=== PATIENT | male | born 1950 | race Caucasian/White ===

== ENCOUNTER 2021-04-26 19:59 | Emergency (ER) | payer OTHER, SELFPAY ==
[2021-04-26] VITALS (14 sets, daily range): BP systolic 160–184; BP diastolic 74–96; PULSE 80–88; RESP 20–36; TEMP 36.3; O2SAT 92–96; BMI 36.6
[2021-04-26 20:22] LABS: Add Manual Diff / Slide Review NO; Basophils Absolute Auto 100 /uL (0-100); Basophils Percent Auto 0.5 % (0-2); Eosinophils Absolute Auto 0 /uL (0-450); Eosinophils Percent Auto 0.2 % (2-4); Hematocrit 49.4 % (41-53); Hemoglobin 16.5 g/dL (13.5-17.5); Lymphocytes Absolute Auto 1100 /uL (1100-4500); Lymphocytes Percent Auto 7.4 % (25-40); Mean Corpuscular HGB Conc 33.3 % (30-36); Mean Corpuscular Hemoglobin 31.1 PG (26-34); Mean Corpuscular Volume 93.5 fL (80-100); Monocytes Absolute Auto 800 /uL (0-900); Monocytes Percent Auto 5.8 % (3-14); Neutrophils Absolute Auto 12400 /uL (1500-7000); Neutrophils Percent Auto 86.1 % (50-75); Platelet Count 203 X10^3/uL (150-400); Red Blood Cell Count 5.29 X10^6/uL (4.5-5.9); Red Cell Distribution Width 13.1 % (11.6-14.8); White Blood Cell Count 14.4 X10^3/uL (4.5-11.0)
[2021-04-26 20:37] LABS: Alanine Aminotransferase 23 IU/L (<50); Albumin 4.7 g/dL (3.5-5.0); Albumin Globulin Ratio 1.3 (1.0-2.8); Alkaline Phosphatase 81 U/L (38-126); Aspartate Aminotransferase 42 IU/L (17-59); BUN Creatinine Ratio 13.2 (6-22); Bilirubin Total 0.8 mg/dL (0.2-1.3); Blood Urea Nitrogen 15 mg/dL (9-20); Calcium 9.4 mg/dL (8.4-10.2); Carbon Dioxide 29 mmol/L (22-32); Chloride 101 mmol/L (98-107); Estimated Glomerular Filt Rate > 60.0 mL/min (>60); Globulin 3.7 g/dL (1.7-4.1); Glucose 139 mg/dL (80-110); HEMOLYSIS 45 (0-50); Lipase 83 U/L (23-300); Potassium 4.1 mmol/L (3.4-5.1); Sodium 139 mmol/L (137-145); Total Protein 8.4 g/dL (6.3-8.2)
--- NOTE | 2021-04-26 21:09 | PC.NURSE ---
Went to check on pt per primary RNs request. Pt states he is having 6/10 sharp LL abd pain, requesting pain medication. Relayed that information to Dr. [place] and she gave a verbal order for 0.5mg IV dilaudid. Repeated and verified
[2021-04-26] MEDS: HYDROMORPHONE 0.5 MG INJ IV (21:15)
[2021-04-26 21:46] LABS: Bacteria Urine None Seen; WBC Urine None Seen (0-5/HPF)
[2021-04-26 22:12] LABS: Amorphous Sediment Urine 1+; RBC Urine 10-30/HPF (0-5/HPF)
[2021-04-27] VITALS (14 sets, daily range): BP systolic 107–177; BP diastolic 58–88; PULSE 79–87; RESP 13–22; TEMP 37.1; O2SAT 93–96
--- NOTE | 2021-04-27 00:45 | ED.GENADULT ---
HPI - General Adult General Chief complaint: Abdominal Pain Stated complaint: ABD Pain L Time Seen by Provider: 04/27/21 00:44 Source: patient Mode of arrival: EMS Limitations: no limitations and language barrier History of Present Illness HPI narrative: 71-year-old gentleman presents with left lower quadrant abdominal pain, nausea and vomiting with increasing pain intermittently all afternoon. States that he has history of multiple orthopedic issues including a knee replacement, hip replacement and hip replacement revision all within the last 18 months with significant use of both 9 steroidals and narcotic pain medication due to pain. He is followed by a pain clinic and is very careful with amount of narcotic used. He has a history of having his gallbladder removed previously. He states he had a bowel movement this morning prior to the onset of the abdominal pain. He reports no fevers, cough, chills, palpitations, headaches. Related Data Allergies Allergy/AdvReac Type Severity Reaction Status Date / Time No Known Drug Allergies Allergy Verified 04/26/21 20:17 Review of Systems Review of Systems Narrative: Remainder of complete review of systems is otherwise unremarkable except for that included in the HPI. Patient History Medical History Kidney stones Surgical History Hip joint replacement status History of cholecystectomy Knee joint replacement status Social History Smoking Status: Never smoker Smoking Status: Never smoker alcohol intake frequency: 0-2 drinks per day Alcohol type: hard liquor Substance Use Type: does not use Exam Narrative Exam Narrative: General: Healthy appearing, in no acute distress. Able to give a complete and coherent history. Well-nourished well-developed HEENT: Moist mucous membranes, normal sclera with reactive pupils, Respiratory: Lungs are clear to auscultation, no wheezing no rales no rhonchi. Full and symmetrical air movement Cardiac: Regular rate and rhythm no murmurs no bruits Abdomen: Soft, good bowel tones, no rebound or guarding. Mild tenderness in the left lower quadrant and left flank area. No testicular pain or tenderness Skin: Warm and dry, no rashes Neurologic: Grossly neurologically intact with no obvious asymmetries or abnormalities Extremities: No trauma, well perfused Psych: Cooperative, appropriate insight and affect Initial Vital Signs Initial Vital Signs: Vital Signs Temperature 97.4 F L 04/26/21 20:13 Pulse Rate 80 04/26/21 20:13 Respiratory Rate 22 04/26/21 20:13 Blood Pressure 184/87 H 04/26/21 20:13 Pulse Oximetry 95 04/26/21 20:13 Course Orders Ordered: ED Orders 04/26/21 20:12 EKG-12 Lead Routine 04/26/21 20:20 Complete Blood Count AUTO DIFF Stat Comprehensive Metabolic Panel Stat Lipase Stat 04/26/21 21:38 Urine Culture Stat Urine Microscopic Stat 04/27/21 00:55 CT abdomen pelvis w con Stat Hydromorphone HCl (Hydromorphone 0.5 Mg Inj) 0.5 mg IV Q15MIN PRN PRN Reason: Pain, Last Admin: 04/27/21 01:04 Dose: 0.5 mg Documented by: LAZARO Discontinued Medications Hydromorphone HCl (Hydromorphone 0.5 Mg Inj) 0.5 mg IV NOW ONE Stop: 04/26/21 21:10 Last Admin: 04/26/21 21:15 Dose: 0.5 mg Documented by: LAZARO Sodium Chloride (Normal Saline 0.9%) 1,000 mls @ 1,000 mls/hr IV BOLUS ONE Stop: 04/27/21 01:53 Last Infusion: 04/27/21 02:22 Dose: 0 mls/hr Documented by: Admin: 04/27/21 01:04 Dose: 1,000 mls/hr Documented by: LAZARO Tamsulosin HCl (Tamsulosin 0.4 Mg Capsule) 0.4 mg PO NOW ONE Stop: 04/27/21 03:13 Last Admin: 04/27/21 03:20 Dose: 0.4 mg Documented by: EBEN Vital Signs Vital signs: Vital Signs - 8 hr 04/26/21 21:00 04/26/21 21:15 04/26/21 21:30 Pulse Rate 83 85 86 Respiratory Rate 23 23 21 Blood Pressure 162/75 H 160/78 H Pulse Oximetry 94 96 93 04/26/21 22:00 04/26/21 22:01 04/26/21 22:30 Pulse Rate 86 86 81 Respiratory Rate 25 H 20 27 H Blood Pressure 173/96 H Pulse Oximetry 93 92 92 04/26/21 22:31 04/26/21 23:00 04/26/21 23:01 Pulse Rate 81 81 82 Respiratory Rate 23 34 H 36 H Blood Pressure 170/78 H 173/80 H Pulse Oximetry 92 92 92 04/26/21 23:30 04/26/21 23:31 04/27/21 00:00 Pulse Rate 82 83 82 Respiratory Rate 17 Blood Pressure 160/74 H Pulse Oximetry 93 93 93 04/27/21 00:01 04/27/21 00:30 04/27/21 00:31 Pulse Rate 83 80 82 Respiratory Rate 19 20 19 Blood Pressure 153/65 H 107/58 L Pulse Oximetry 93 93 93 04/27/21 01:00 04/27/21 01:01 04/27/21 01:26 Pulse Rate 79 87 81 Respiratory Rate 22 21 Blood Pressure 155/80 H 177/88 H Pulse Oximetry 94 94 96 04/27/21 01:30 04/27/21 02:00 04/27/21 02:30 Pulse Rate 80 80 79 Respiratory Rate 17 18 17 Blood Pressure 173/84 H Pulse Oximetry 95 96 93 04/27/21 02:31 04/27/21 03:00 04/27/21 03:01 Pulse Rate 79 79 79 Respiratory Rate 15 15 13 Blood Pressure 142/62 H 131/63 Pulse Oximetry 94 93 94 Medical Decision Making Lab Data Result diagrams: 04/26/21 20:20 04/26/21 20:20 Labs: Lab Results 04/26/21 04/26/21 04/26/21 Range/Units 20:20 20:20 21:38 WBC 14.4 H (4.5-11.0) X10^3/uL RBC 5.29 (4.5-5.9) X10^6/uL Hgb 16.5 (13.5-17.5) g/dL Hct 49.4 (41-53) % MCV 93.5 (80-100) fL MCH 31.1 (26-34) PG MCHC 33.3 (30-36) % RDW 13.1 (11.6-14.8) % Plt Count 203 (150-400) X10^3/uL Neut % (Auto) 86.1 H (50-75) % Lymph % (Auto) 7.4 L (25-40) % [place] % (Auto) 5.8 (3-14) % Eos % (Auto) 0.2 L (2-4) % Baso % (Auto) 0.5 (0-2) % Neut # (Auto) 90400 H (4534-0065) /uL Lymph # (Auto) 1100 (0160-8224) /uL [place] # (Auto) 800 (0-900) /uL Eos # (Auto) 0 (0-450) /uL Baso # (Auto) 100 (0-100) /uL Sodium 139 (137-145) mmol/L Potassium 4.1 (3.4-5.1) mmol/L Chloride 101 (98-107) mmol/L Carbon Dioxide 29 (22-32) mmol/L BUN 15 (9-20) mg/dL Creatinine 1.14 (0.66-1.25) mg/dL Estimated GFR > 60.0 (>60) mL/min BUN/Creatinine Ratio 13.2 (6-22) Glucose 139 H (80-110) mg/dL Calcium 9.4 (8.4-10.2) mg/dL Total Bilirubin 0.8 (0.2-1.3) mg/dL AST 42 (17-59) IU/L ALT 23 (<50) IU/L Alkaline Phosphatase 81 (38-126) U/L Total Protein 8.4 H (6.3-8.2) g/dL Albumin 4.7 (3.5-5.0) g/dL Globulin 3.7 (1.7-4.1) g/dL Albumin/Globulin Ratio 1.3 (1.0-2.8) Lipase 83 (23-300) U/L Urine RBC 10-30/hpf H (0-5/HPF) Urine WBC None seen (0-5/HPF) Amorphous Sediment 1+ Urine Bacteria None seen (None) Ur Culture Indicated? Culture not indicate Urine Dip Bedside Urine Glucose Negative Bedside Urine Bilirubin - Negative Bedside Urine Ketone + 15 Urine Specific [place] 1.020 Bedside Urine Occult Blood +++ Bedside Urine pH 6 Bedside Urine Protein +/- 15 Bedside Urine Urobilinogen - Negative Bedside Urine Nitrite - Negative Bedside Urine Leukocytes - Negative Esterase Point of care testing: Urine Dip Bedside Urine Glucose Negative Bedside Urine Bilirubin - Negative Bedside Urine Ketone + 15 Urine Specific [place] 1.020 Bedside Urine Occult Blood +++ Bedside Urine pH 6 Bedside Urine Protein +/- 15 Bedside Urine Urobilinogen - Negative Bedside Urine Nitrite - Negative Bedside Urine Leukocytes - Negative Esterase Imaging Data CT scan - abdomen/pelvis: My Impression: Left obstructive uropathy secondary to 1.5 mm distal ureteral calculus just proximal to the UVJ Duane Choe MD [facility] Narrative Medical decision making narrative: 71-year-old gentleman with acute onset left lower quadrant pain that turns out to be a small kidney stone at the uterovesical junction. Heavy placed on Flomax until the stone passes. He has ibuprofen and oxycodone available to him at home and does not want any additional medications. There is no evidence of infection or acute renal failure. Findings are reviewed with patient. Questions are answered and he is safe for home discharge Discharge Plan Departure Patient Disposition: Home Clinical Impression: Ureterolithiasis Instructions: DI for Kidney Stones Activity Restrictions/Additional Instructions: Thank you for coming in today You have a 1.5 mm kidney stone on the left side almost ready to pass into the bladder. I have given you a prescription for Flomax/tamsulosin. This is to help the stone pass more easily. Once the stone has passed, you do not need to continue this medication If you have increasing pain, vomiting, fevers or develop new symptoms, you do need to return to the ER for further evaluation I hope you heal quickly
--- NOTE | 2021-04-27 00:55 | DI.CT.S_ITS ---
PROCEDURE: CT ABDOMEN PELVIS W CON INDICATIONS: Left lower quadrant pain with leukocytosis TECHNIQUE: After the administration of intravenous contrast, axial sections acquired from the lung bases to the pubic symphysis. Coronal and sagittal reformats were performed. For radiation dose reduction, the following was used: automated exposure control, adjustment of mA and/or kV according to patient size. COMPARISON: None. FINDINGS: Image quality: Excellent. Lung bases: There is a 6 mm nodule in the right lower lobe (series 4, image 5). Small hiatal hernia. Heart: No significant findings. ABDOMEN: Liver: Liver is normal in size. Mild hepatic steatosis.. Gallbladder: Surgically removed. Biliary ducts: Unremarkable. Pancreas: Unremarkable. Spleen: Unremarkable. Adrenal Glands: Unremarkable. Kidneys and Ureters: Mild left hydronephrosis and left ureterectasis cyst. There is a 2 mm stone in the distal left ureter near the left UVJ. There is a 4.2 cm diameter exophytic cyst in right kidney with minimal mural calcification. Stomach and Bowel: Stomach, small bowel loops, and colon are normal in caliber. Moderate amount of stool in colon. There are scattered colonic diverticula. No findings to suggest active diverticulitis. Peritoneum: No abnormal intraperitoneal fluid. No free air. Ventral Wall: No hernias. Abdominal Nodes: No retroperitoneal or mesenteric adenopathy by size criteria. Vessels: Aorta and inferior vena cava are normal in size. PELVIS: Pelvic Organs: Unremarkable. Bladder: Unremarkable. Pelvic Nodes: No enlarged lymph nodes. Miscellaneous: Small fat containing inguinal hernias are seen. Bones: Degenerative changes in lumbar spine. Left hip arthroplasty. IMPRESSION: 1. A 2 mm obstructive stone in the distal left ureter near the left UVJ. There is mild left hydronephrosis. 2. Diverticulosis without diverticulitis. 3. Hepatic steatosis. 4. A 4.2 cm cyst in right kidney. 5. A 6 mm lung nodule in the right lower lobe. Recommend a short-term follow-up chest CT for further evaluation. No significant discrepancy with the police shift commander radiology preliminary report. Dictated by: Joy Bellamy M.D. on 04/27/2021 at 7:46 Approved by: Joy Bellamy M.D. on 04/27/2021 at 7:53
[2021-04-27] MEDS: SODIUM CHLORIDE 0.9% 1,000 ML 1000 ML IV (01:04)
[2021-04-27] MEDS: HYDROMORPHONE 0.5 MG INJ IV (01:04)
[2021-04-27] MEDS: TAMSULOSIN 0.4 MG CAPSULE PO (03:20)
== END 2021-04-27 06:27 | disposition home or self-care (01) ==
PROVIDERS: Emergency Provider Emergency Medicine
DX: N20.1 Calculus of ureter (principal); N20.0 Calculus of kidney; R11.2 Nausea with vomiting, unspecified; R10.32 Left lower quadrant pain
CPT/HCPCS: 36415; 74177; 80053; 81003; 81015; 83690; 85025; 87086; 93005; 93010; 96361; 96374; 96375; 96376; 99284; J1170; J1885; J2405; Q9967

== ENCOUNTER 2021-04-27 20:12 | Emergency (ER) | payer OTHER, SELFPAY ==
[2021-04-27 20:14] VITALS: BP 167/83; PULSE 90; RESP 20; O2SAT 91
[2021-04-27 20:18] VITALS: BP 167/83; PULSE 88; TEMP 37; O2SAT 92
[2021-04-27] MEDS: SODIUM CHLORIDE 0.9% 1,000 ML 1000 ML IV (20:29)
[2021-04-27] MEDS: TAMSULOSIN 0.4 MG CAPSULE PO (20:29)
[2021-04-27] MEDS: KETOROLAC 30 MG/ML VIAL 15 MG IV (20:30)
[2021-04-27 21:00] LABS: Amorphous Sediment Urine 1+; Bacteria Urine Occasional (0-1); Culture Indicated Urine Specimen Cultured; Mucus Urine 1+ (Negative); RBC Urine 10-30/HPF (0-5/HPF); Squamous Epithelial Cell Urine 0-1 /HPF (0-5/HPF); WBC Urine 5-10/HPF (0-5/HPF)
[2021-04-27] MEDS: HYDROMORPHONE 0.5 MG INJ IV ×2 (21:11→22:16)
[2021-04-27] MEDS: ONDANSETRON 4 MG/2 ML INJ IV (23:22)
[2021-04-27] MEDS: OXYCODONE/ACETAMINOPHEN 5/325 TABLET 2 TAB PO (23:22)
[2021-04-28 01:02] VITALS: BP 132/64; PULSE 84; RESP 20; O2SAT 100
--- NOTE | 2021-04-28 01:28 | ED.ABDPAIN ---
HPI - Abdominal Pain General Chief Complaint: Abdominal Pain Stated Complaint: Kidney stone Time Seen by Provider: 04/27/21 20:15 Source: patient Mode of arrival: EMS History of Present Illness HPI narrative: 71-year-old gentleman seen in the emergency room last night with a diagnosis of a left ureteral stone at the UVJ. Returns again today with recurrent pain. He has multiple orthopedic issues and is followed by a pain clinic with a pain contract that has him alternating ibuprofen and oxycodone with a maximum of 3 oxycodone tablets in 24 hours. On discharge yesterday we discussed pain management and he felt that his routine pain medications would be adequate and due to his pain contract declined any additional pain medications. Unfortunately once he got home and was able to get some better sleep he woke up with increasing pain that was not able to be controlled with 5 mg of oral Percocet. The pain continued to escalate to the point where he was vomiting and he returns for further evaluation. He describes no new symptoms or changes from yesterday's visit. Related Data Previous Rx's Medication Instructions Recorded tamsulosin 0.4 mg capsule 0.4 mg PO DAILY #10 cap 04/27/21 ondansetron 4 mg disintegrating 4 mg PO Q8H PRN #14 tab 04/28/21 tablet oxycodone-acetaminophen 5 mg-325 1 tab PO Q6H PRN #12 tab 04/28/21 mg tablet Allergies Allergy/AdvReac Type Severity Reaction Status Date / Time No Known Drug Allergies Allergy Verified 04/26/21 20:17 Review of Systems Review of Systems Narrative: Remainder of complete review of systems is otherwise unremarkable except for that included in the HPI. Patient History Medical History Kidney stones Surgical History Hip joint replacement status History of cholecystectomy Knee joint replacement status Social History Smoking Status: Never smoker Smoking Status: Never smoker alcohol intake frequency: 0-2 drinks per day Alcohol type: hard liquor Substance Use Type: does not use Exam Narrative Exam Narrative: General: Alert appropriate in no acute distress Respiratory: Able to speak in full sentences, no obvious respiratory distress Skin: No obvious rashes, warm and dry Abdomen: Mild left flank tenderness, no rebound or guarding Neurologic: Grossly intact no obvious asymmetries or abnormalities Psych: appropriate insight and affect, cooperative Initial Vital Signs Initial Vital Signs: Vital Signs Pulse Rate 90 04/27/21 20:14 Respiratory Rate 20 04/27/21 20:14 Blood Pressure 167/83 H 04/27/21 20:14 Pulse Oximetry 91 04/27/21 20:14 Course Orders Ordered: Hydromorphone HCl (Hydromorphone 0.5 Mg Inj) 0.5 mg IV Q15MIN PRN PRN Reason: Pain, Last Admin: 04/27/21 22:16 Dose: 0.5 mg Documented by: Admin: 04/27/21 21:11 Dose: 0.5 mg Documented by: ELENA Discontinued Medications Sodium Chloride (Normal Saline 0.9%) 1,000 mls @ 1,000 mls/hr IV BOLUS ONE Stop: 04/27/21 21:14 Last Infusion: 04/27/21 22:15 Dose: 0 mls/hr Documented by: Admin: 04/27/21 20:29 Dose: 1,000 mls/hr Documented by: ELENA Ibuprofen (Ibuprofen 400 Mg Tablet) 400 mg PO NOW ONE Stop: 04/28/21 06:09 Ketorolac Tromethamine (Ketorolac 30 Mg/Ml Vial) 15 mg IV NOW ONE Stop: 04/27/21 20:16 Last Admin: 04/27/21 20:30 Dose: 15 mg Documented by: ELENA Ondansetron HCl (Ondansetron 4 Mg/2 Ml Inj) 4 mg IV NOW ONE Stop: 04/27/21 23:18 Last Admin: 04/27/21 23:22 Dose: 4 mg Documented by: ELENA Oxycodone/Acetaminophen (Oxycodone/Acetaminophen 5/325 Tablet) 2 tab PO NOW ONE Stop: 04/27/21 23:18 Last Admin: 04/27/21 23:22 Dose: 2 tab Documented by: ELENA Oxycodone/Acetaminophen (Oxycodone/Acetaminophen 5/325 Tablet) 1 tab PO NOW ONE Stop: 04/28/21 06:09 Tamsulosin HCl (Tamsulosin 0.4 Mg Capsule) 0.4 mg PO NOW ONE Stop: 04/27/21 20:16 Last Admin: 04/27/21 20:29 Dose: 0.4 mg Documented by: ELENA Vital Signs Vital signs: Vital Signs - 8 hr 04/28/21 01:02 Pulse Rate 84 Respiratory Rate 20 Blood Pressure 132/64 Pulse Oximetry 100 MDM - Abdominal Pain Lab Data Labs: Lab Results 04/27/21 Range/Units 20:30 Urine RBC 10-30/hpf H (0-5/HPF) Urine WBC 5-10/hpf H (0-5/HPF) Ur Squamous Epith Cells 0-1 /hpf (0-5/HPF) Amorphous Sediment 1+ Urine Bacteria Occasional (0-1) (None) Urine Mucus 1+ H (Negative) Ur Culture Indicated? Specimen cultured Point of care testing: Urine Dip Bedside Urine Glucose Negative Bedside Urine Bilirubin - Negative Bedside Urine Ketone - Negative Urine Specific [place] 1.030 Bedside Urine Occult Blood +++ Bedside Urine pH 6.0 Bedside Urine Protein +/- 15 Bedside Urine Urobilinogen - Negative Bedside Urine Nitrite - Negative Bedside Urine Leukocytes - Negative Esterase MDM Narrative Medical decision making narrative: 71-year-old gentleman with known left ureteral stone now for 24 hours. Recurrent pain not controlled with home medications. No fevers or additional complications. On arrival IV is started common he is given a L fluid, IV Toradol and 0.5 mg of Dilaudid with significant relief of pain. He was then given 2 Percocet which has nicely controlled his pain. He is again essentially ?stuck? here in the emergency department. He is traveling and lives in his motor home and has no options for returning home with cabs not available middle of the night. Will sleep overnight and will give him 2 additional Percocet prior to discharge in the morning. Will give him a prescription for Percocet to use in place of his usual oxycodone and Zofran for pain control. Patient is in agreement will continue with Flomax and straining urine and will return should he have additional concerns. He is safe for home discharge Discharge Plan Departure Patient Disposition: Home Clinical Impression: Kidney stones Instructions: DI for Kidney Stones Activity Restrictions/Additional Instructions: thank you for coming in today I'm sorry your pain returned and was not able to be controlled. I know you typically alternate 5mg of oxycodone and 800mg of ibuprofen. You can continue this if you like. You might consider trying 400mg of ibuprofen, 5mg of oxydocone and one tylenol all at the same time every 6 hours. The combination may be more effective with pain control and allow you to use overall, less medication. Continue the tamsulosin until you have passed the stone. I am also going to give you a prescription for Zofran to help control nausea related to severe pain. I hope this stone passes soon and your trip on to [place] is uneventful. Prescriptions: New oxycodone-acetaminophen 5-325 mg tablet 1 tab PO Q6H PRN (Reason: pain) Qty: 12 RF: 0 ondansetron 4 mg tablet,disintegrating 4 mg PO Q8H PRN (Reason: nausea and vomiting) Qty: 14 RF: 0 No Action tamsulosin 0.4 mg capsule 0.4 mg PO DAILY Qty: 10 RF: 0
[2021-04-28 06:25] VITALS: BP 148/78; PULSE 80; O2SAT 96
== END 2021-04-28 06:30 | disposition home or self-care (01) ==
PROVIDERS: Emergency Provider Emergency Medicine
DX: N20.0 Calculus of kidney (principal)
CPT/HCPCS: 81003; 81015; 87086; 96361; 96374; 96375; 99284; J1170; J1885; J2405